=== PATIENT | female | born 1980 | race Caucasian/White ===

== ENCOUNTER 2016-10-14 22:32 | Emergency (ER) | payer OTHER ==
[~2016-10-14] VITALS: Ht 160 cm; Wt 54.4 kg
[2016-10-14 23:17] LABS: KETONES,URINE NEGATIVE (NEGATIVE); LEUKOCYTE ESTERASE ,URINE NEGATIVE (NEGATIVE); PH,URINE 5.5 (5.0-8.0)
[2016-10-14 23:18] LABS: ADD UA MICROSCOPIC YES
[2016-10-14 23:24] LABS: ADD URINE CULTURE NO; WBC,URINE 0-3 /HPF (0-3)
[2016-10-14 23:27] LABS: BASOPHILS # (AUTO) 0.1 /CMM (0.0-0.2); BASOPHILS % (AUTO) 1.6 % (0.0-2.0); DIFF TOTAL % 100 %; EOSINOPHILS # (AUTO) 0.1 /CMM (0.0-0.7); EOSINOPHILS % (AUTO) 2.9 % (0.0-6.0); HEMATOCRIT 41 % (33-45); HEMOGLOBIN 13.4 g/dL (11.5-14.8); LYMPHOCYTES # (AUTO) 1.1 /CMM (0.8-4.8); LYMPHOCYTES % (AUTO) 22.6 % (20.0-44.0); MEAN CORPUSCULAR HEMOGLOBIN 31 PG (26.0-33.0); MEAN CORPUSCULAR HGB CONC 33 g/dl (31.0-36.0); MEAN CORPUSCULAR VOLUME 94 fL (82-100); MONOCYTES # (AUTO) 0.6 /CMM (0.1-1.30); MONOCYTES % (AUTO) 12.7 % (2.0-12.0); NEUTROPHILS % (AUTO) 60.2 % (43.0-81.0); PLATELET COUNT (AUTO) 242 /CMM (150-450); RED BLOOD CELL COUNT(AUTO) 4.35 MIL/uL (4.0-5.2); WHITE BLOOD COUNT (AUTO) 4.9 K/uL (4.3-11.0)
[2016-10-14 23:28] LABS: PREGNANCY TEST URINE QUAL NEGATIVE (NEGATIVE)
[2016-10-14] MEDS ORDERED: ONDANSETRON 4 MG TAB.RAPDIS SL ONE (23:30)
[2016-10-14 23:37] LABS: CALCIUM, SERUM 8.1 mg/dL (8.5-10.1); CREATININE 0.7 mg/dL (0.6-1.3); POTASSIUM 3.4 mmol/L (3.5-5.1)
[2016-10-14 23:40] LABS: INR 0.95 (0.87-1.13); PROTHROMBIN TIME 10.3 SECS (9.5-12.7)
[2016-10-14 23:42] LABS: ALBUMIN 3.6 g/dL (3.4-5.0); BILIRUBIN,DIRECT 0.1 mg/dL (0.0-0.2); BILIRUBIN,TOTAL 0.3 mg/dL (0.2-1.0); INDIRECT BILIRUBIN 0.2 mg/dL (0.0-1.1); TOTAL PROTEIN, SERUM 7.4 g/dL (6.4-8.2)
[2016-10-14] MEDS ORDERED: ONDANSETRON 4 MG TAB.RAPDIS ONE (23:43)
[2016-10-15 00:24] VITALS: BP 104/72
== END 2016-10-15 00:24 | disposition home or self-care (01) ==
LOC: ER 22:32
DX: S09.90XA Unspecified injury of head, initial encounter (principal); S70.02XA Contusion of left hip, initial encounter; F41.9 Anxiety disorder, unspecified; Z98.82 Breast implant status; Z88.2 Allergy status to sulfonamides; Z88.6 Allergy status to analgesic agent; F17.200 Nicotine dependence, unspecified, uncomplicated; W20.1XXA Struck by object due to collapse of building, initial encounter; Y93.89 Activity, other specified; Y92.89 Other specified places as the place of occurrence of the external cause; Y99.8 Other external cause status
CPT/HCPCS: 36415; 70450; 71010; 73503; 80048; 80076; 81001; 84703; 85025; 85610; 99285; A4606; Q0162; Z7610; 73510-TC; 81000-TC

== ENCOUNTER 2017-02-21 19:45 | Emergency (ER) | payer OTHER ==
[~2017-02-21] VITALS: Ht 172.7 cm; Wt 54.4 kg
--- NOTE | 2017-02-21 20:00 | NUR ---
PT BIB TO ER BED 12. C/O MIGRAINE HEADACHE X 2 DAYS. N/V ALSO NOTED. PT GOWNED AND PLACED ON MONITOR. NAD NOTED. AWAITING MD WATERMAN.
--- NOTE | 2017-02-21 20:18 | NUR ---
DR PERKINS AT BEDSIDE FOR EVAL.
[2017-02-21] MEDS ORDERED: Magnesium 1 GM/2 ML VIAL IV ONE (20:30)
[2017-02-21] MEDS ORDERED: PROCHLORPERAZINE EDISYLATE 10 MG/2 ML VIAL IV ONE (20:30)
[2017-02-21] MEDS ORDERED: DEXAMETHASONE SOD PHOSPHATE 10 MG/ML VIAL IV ONE (20:30)
[2017-02-21] MEDS ORDERED: PROCHLORPERAZINE EDISYLATE 10 MG/2 ML VIAL ONE (20:37)
[2017-02-21] MEDS ORDERED: IV NS 0.9% 250 ML IV ONE (20:37)
[2017-02-21] MEDS ORDERED: DEXAMETHASONE SOD PHOSPHATE 10 MG/ML VIAL ONE (20:37)
[2017-02-21] MEDS ORDERED: IV SET PRIMARY PUMP SET 1 EA INFUS.SET MC ONE (20:37)
[2017-02-21] MEDS ORDERED: Magnesium 1GM/D5W 100ML PREMIX 200 ML IV ONE (20:38)
--- NOTE | 2017-02-21 21:30 | NUR ---
DR PERKINS NOTED OF B/P. NO NEW ORDERS. WILL CONT. TO MONITOR.
--- NOTE | 2017-02-21 22:27 | NUR ---
PT AWAKE. STATES FEELING MUCH BETTER. Patient discharged to home in stable condition. Written and verbal after care instructions given. Patient verbalizes understanding of instruction.IV removed. Catheter intact and site benign. Pressure and 4x4 applied to site. No bleeding noted.
[2017-02-21 22:29] VITALS: BP 103/61
== END 2017-02-21 22:27 | disposition home or self-care (01) ==
LOC: ER 19:50
DX: G43.909 Migraine, unspecified, not intractable, without status migrainosus (principal); B19.20 Unspecified viral hepatitis C without hepatic coma; F41.9 Anxiety disorder, unspecified; Z88.2 Allergy status to sulfonamides; Z88.6 Allergy status to analgesic agent
CPT/HCPCS: 84703; 96365; 96375; 99284; A4606; J0780; J1100; J3475; J7050; Z7610